=== PATIENT | male | born 1960 | race African-American/Black ===

== ENCOUNTER 2024-04-04 21:22 | Emergency (ER) | payer SELFPAY ==
[~2024-04-04] VITALS: Ht 177.8 cm; Wt 75.0 kg
[2024-04-04 21:26] VITALS: O2SAT 98
[2024-04-04 21:28] VITALS: BP 133/78; PULSE 80; TEMP 98.3; O2SAT 99
[2024-04-04] MEDS: LIDOCAINE 5% PATCH TOP SCH (22:15)
[2024-04-04] MEDS ORDERED: NAPR-679 MT (22:16)
[2024-04-04] MEDS ORDERED: CYCL5TAB MT (22:16)
[2024-04-04] MEDS ORDERED: ACET-2708 MT (22:16)
[2024-04-04 22:30] VITALS: RESP 16
[2024-04-04] MEDS: KETOROLAC 30MG/ML VIAL IM ONE (22:30)
[2024-04-04] MEDS: ACETAMINOPHEN 325MG TABLET PO ONE (22:30)
== END 2024-04-04 22:32 | disposition home or self-care (01) ==
LOC: ER 21:22
DX: M62.838 Other muscle spasm (principal); M54.2 Cervicalgia; Z88.2 Allergy status to sulfonamides
CPT/HCPCS: 99283; 96372; J1885